=== PATIENT | male | born 1960 | race Caucasian/White ===

== ENCOUNTER → 2018-06-10 | Outpatient (CLI) | payer BC ==
[~2018-06-10] MED LIST: GADOBENATE DIMEGLUMINE 1 ML IV ONE; IOPAMIDOL 300 MG/ML 15ML VIAL IT ONE; LIDOCAINE HCL 1% LOCAL INJ 20 ML VIAL ONE
--- NOTE | 2018-06-10 10:30 | Diagnostic Imaging Report ---
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 3 cc of a mixture of 0.1 cc gadolinium and 10 cc sterile saline intra-articular Estimated blood loss: Minimal Specimens: None Implants: None Complications: No immediate Condition at completion: Stable Disposition: MRI DISCUSSION: Informed consent was obtained and documented in the medical record. The patient was placed on the fluoroscopic table in supine position. A bolster was placed under the left wrist, which was pronated and placed in slight flexion. The dorsum of the wrist was prepped and draped in standard sterile fashion. A suitable percutaneous approach to the radiocarpal joint was identified and the overlying skin was anesthetized with 1% lidocaine. Then under intermittent fluoroscopic guidance a 25-gauge needle was advanced to the radio-scaphoid joint. A small amount of dilute Isovue-300 was injected into the joint, confirming intra-articular location. Subsequently, 3 cc of a mixture of 0.1 cc gadolinium with 10 cc sterile saline were injected into the joint. The needle was removed and a sterile dressing was applied. The patient tolerated the procedure well without immediate complication. FINDINGS: No passage of contrast into the intercarpal space or distal radial ulnar joint. IMPRESSION: Successful radiocarpal intra-articular injection of gadolinium contrast material for purposes of MR arthrography, subsequently performed and separately reported. Signed by: Dr. Daniel Dahl M.D. on 06/10/2018 10:27 AM
--- NOTE | 2018-06-10 12:41 | Diagnostic Imaging Report ---
TECHNIQUE: Magnetic resonance imaging of the LEFT WRIST was performed after intra-articular injection of contrast on a 1.5 judith magnet. Motion artifact partially limits sensitivity and specificity of the exam. HISTORY: Strain of flexor muscle, movement hurts, TFCC tear COMPARISON: Spot images from the intra-articular injection of contrast from the same date. Left wrist radiographs June 10, 2018. FINDINGS: Bone and bone marrow: No focal or infiltrative bone marrow replacing abnormality. No acute fracture or osteonecrosis. Mild ulnar minus variance, which may be accentuated by positioning. Joints: Contrast within the radiocarpal joint, and within the midcarpal joint. Multifocal low-grade cartilage erosion, most notably intermediate grade of the first carpometacarpal joint. Ligaments: Scapholunate: Contour irregularity and mild attenuation, most notably the dorsal and central membranous portion adjacent to the lunate insertion. An occult full-thickness perforation(s) is probable. There are intact fibers with no widening of the interspace. Lunotriquetral: A subtle focal high-grade to full-thickness perforation of the mid substance near the triquetral insertion. There are intact fibers with no widening of the interspace. Triangular fibrocartilage complex: Complex tearing with intrasubstance delamination, most notably the peripheral and dorsal fibers, full-thickness perforation(s) is probable. Extrinsic ligaments: Intact Tendons: Low-grade partial tearing of the extensor carpi ulnaris tendon adjacent to the distal ulna along with flattening and mild ulnar subluxation of the tendon from the distal ulnar groove. The subsheath is not seen in its entirety, but the overlying retinaculum appears intact. Carpal tunnel: The median nerve is within normal limits. Other soft tissues: Dorsal fluid, compatible with the recent intra-articular injection. IMPRESSION: 1. Multifocal degenerative changes, including degenerative tearing of the triangle fibrocartilage complex, scapholunate, and lunotriquetral ligaments as detailed above. 2. Mild degenerative tearing of the extensor carpi ulnaris tendon and mild ulnar subluxation compatible with a chronic subsheath tear. Signed by: Dr. Shamir Lara D.O., M.M.M. on 06/10/2018 12:37 PM
== END ==
LOC: DX 08:14
PROVIDERS: ATTEND Orthopaedic Surgery
DX: S66.117A Strain of flexor muscle, fascia and tendon of left little finger at wrist and hand level, initial encounter (principal); S66.317A Strain of extensor muscle, fascia and tendon of left little finger at wrist and hand level, initial encounter
CPT/HCPCS: 25246; 73222; 77002; A9577; Q9967; J2001

== ENCOUNTER → 2021-09-21 | Day surgery (SDC) | payer BC ==
[~2021-09-21] MED LIST changes: +ACETAMINOPHEN 1000 MG/100 ML IV ONE; +BUPIVACAINE 0.25% 30ML SDV ONE; +DEXAMETHASONE SOD PHOS INJ 4 MG/ML SDV ONE; +FENTANYL CITRATE/PF 100MCG/2 ML INJ ONE; -GADOBENATE DIMEGLUMINE 1 ML IV ONE; -IOPAMIDOL 300 MG/ML 15ML VIAL IT ONE; +KETOROLAC TROMETHAMINE 30 MG/ML VIAL ONE; -LIDOCAINE HCL 1% LOCAL INJ 20 ML VIAL ONE; +LIDOCAINE HCL 2% LOCAL INJ 5 ML SDV VIAL INJ ONE; +MIDAZOLAM HCL 2 MG/2 ML VIAL ONE; +MULTI-VITAMIN1 EACH PO; +ONDANSETRON HCL INJ 2MG/ML 2ML 2 MG/ML VIAL ONE; +POVIDONE IODINE 0.05% 0.05 % ML PO ONE; +PROPOFOL IV EMULSION 10 MG/ML 20 ML VIAL ONE; +SEVOFLURANE INHAL SOLN 250 ML PEN BTL ONE; +VITAMIN C1000 MG PO; +VITAMIN D310 MCG PO; +XYZAL5 MG PO; +ZOLPIDEM TARTRAT5 MG PO
[2021-09-21 08:45] VITALS: BP 117/74
== END | disposition home or self-care (01) ==
LOC: OR 08:34
PROVIDERS: ATTEND Podiatrist Foot & Ankle Surgery
DX: G57.51 Tarsal tunnel syndrome, right lower limb (principal); G47.33 Obstructive sleep apnea (adult) (pediatric); Z01.810 Encounter for preprocedural cardiovascular examination; Z01.812 Encounter for preprocedural laboratory examination; Z01.818 Encounter for other preprocedural examination; Z20.822 Contact with and (suspected) exposure to COVID-19
CPT/HCPCS: 0223U; 28035; 36415; 71046; 93005; J0131; J0690; J1100; J1885; J2001; J2250; J2405; J2704; J3010